=== PATIENT | male | born 1975 ===

== ENCOUNTER 2020-04-29 22:37 | Emergency (ER) | payer SELFPAY ==
[~2020-04-29] VITALS: Ht 175 cm; Wt 70.3 kg
[2020-04-29] MEDS ORDERED: LIDOCAINE 1% INJ 20 ML 20 ML VIAL INJ ONE (23:00)
[2020-04-29] MEDS ORDERED: TETANUS,DIPTH,PERTUSS P/F (BOOSTRIX) 0.5 ML VIAL IM ONE (23:00)
[2020-04-29] MEDS ORDERED: fentaNYL INJECTION 100 MCG/2 ML AMP IVP ONE (23:00)
[2020-04-29] MEDS ORDERED: morphine INJ 10 MG/ML 1ML (SYR OR VIAL) IVP STA (23:29)
[2020-04-29] MEDS ORDERED: ONDANSETRON 4 MG/2 ML (SDV) Z0FRAN IVP ONE (23:30)
--- NOTE | 2020-04-30 01:06 | ED Lower Extremity ---
General Chief Complaint: Laceration Stated Complaint: RIGHT LEG LAC Nursing Triage Note: to e.d. by private vehicle after cutting thigh with skil saw approx. 2230, 11x6cm laceration to right anterior thigh. Nursing Sepsis Screen: No Definite Risk Source: patient Exam Limitations: no limitations History of Present Illness Date Seen by Provider: Apr 29, 2020 Time Seen by Provider: 23:00 Initial Comments Patient is a 44-year-old male who presents to the emergency department tonight with a chief complaint of a traumatic injury to the right anterior thigh. Patient states that he was using a skill saw when he inadvertently pulled the skill saw down onto his right thigh. Patient had immediate pain. He denies any numbness, tingling weakness to the extremity. He is complaining of significant pain right now. There is not much bleeding noted. He denies any injuries anywhere else. Unknown last tetanus shot. All other review of systems reviewed and negative except as stated above. Onset: just prior to arrival Severity: severe Pain/Injury Location: right thigh Method of Injury: incised Allergies and Home Medications Allergies Coded Allergies: No Known Drug Allergies (Unverified , 04/29/20) Home Medications Cephalexin 500 Mg Tablet, 500 MG PO TID Prescribed by: JAYCE SEWELL on 04/30/20 0110 Hydrocodone/Acetaminophen 1 Each Tablet, 1 TAB PO Q6H PRN for PAIN-MODERATE (5- 7) Prescribed by: JAYCE SEWELL on 04/30/20 0110 Patient Home Medication List Home Medication List Reviewed: Yes Review of Systems Constitutional: see HPI EENTM: no symptoms reported Respiratory: no symptoms reported Cardiovascular: no symptoms reported Gastrointestinal: nausea Musculoskeletal: muscle pain Skin: other (Large laceration) All Other Systems Reviewed Negative Unless Noted: Yes Past Adaygch-Iwqmas-Bhgazo Hx Patient Social History Alcohol Use: Denies Use Smoking Status: Never a Smoker 2nd Hand Smoke Exposure: No Recent Infectious Disease Expo: No Recent Hopitalizations: No Immunizations Up To Date Tetanus Booster (TDap): Unknown Seasonal Allergies Seasonal Allergies: No Past Medical History Surgeries: No Respiratory: No Cardiac: No Neurological: No Genitourinary: No Gastrointestinal: No Musculoskeletal: No Endocrine: No HEENT: No Cancer: No Psychosocial: No Integumentary: No Blood Disorders: No Physical Exam Vital Signs Vital Signs - First Documented 04/29/20 22:40 Temp 36.8 Pulse 67 Resp 18 B/P (MAP) 137/90 (106) Pulse Ox 100 O2 Delivery Room Air Capillary Refill : Less Than 3 Seconds Height, Weight, BMI Height: '" Weight: lbs. oz. kg; 22.00 BMI Method: General Appearance: WD/WN, moderate distress HEENT: PERRL/EOMI Cardiovascular: regular rate, rhythm Respiratory: no respiratory distress, no accessory muscle use Gastrointestinal: non tender, soft Hips: bilateral hip non-tender, bilateral hip normal inspection, bilateral hip normal range of motion, bilateral hip no evidence of injury; right hip soft tissue tenderness Legs: bilateral leg non-tender, bilateral leg normal inspection, bilateral leg normal range of motion, bilateral leg no evidence of injury Knees: bilateral knee non-tender, bilateral knee normal inspection, bilateral knee normal range of motion, bilateral knee no evidence of injury Ankles: bilateral ankle non-tender, bilateral ankle normal inspection, bilateral ankle normal range of motion, bilateral ankle no evidence of injury Neurologic/Psychiatric: alert, normal mood/affect, oriented x 3 Skin: normal color, other (Large 11 cm in length vertical laceration down the anterior right thigh approximately 6 cm in width. No significant active ble eding no obvious contamination.) Procedures/Interventions Wound Location: Lower Extremities (Right thigh) Wound Length (cm): 11 Wound's Depth, Shape: superficial, into muscle, linear Wound Explored: clean Irrigated w/ Saline (ccs): 500 Betadine Prep?: No Anesthesia: 1% Lidocaine Volume Anesthetic (ccs): 15 Suture: Ethlion, Vicryl (3-0) Suture Size: 2-0 Number of Sutures: 12 Layer Closure?: 2 Number Deep Layer Sutures: 3 Sterile Dressing Applied?: Yes Progress/Results/Core Measures Results/Orders My Orders Orders - JAYCE SEWELL MD Fentanyl Injection (Sublimaze Injection (04/29/20 23:00) Dipht,Pertuss(Acell),Tet Adult (Boostrix (04/29/20 23:00) Lidocaine 1% Inj 20 Ml (Xylocaine 1% Inj (04/29/20 23:00) Morphine Injection (Morphine Injection (04/29/20 23:29) Ondansetron Injection (Zofran Injectio (04/29/20 23:30) Cephalexin Capsule (Keflex Capsule) (04/30/20 01:15) Rx-Hydrocodone/Apap 5-325 Mg (Rx-Vicodin (04/30/20 01:15) Medications Given in ED Current Medications Medications Dose Ordered Sig/Alyssa Route Start Time Stop Time Status Last Admin Dose Admin Acetaminophen/ Hydrocodone Bitart 1 ea Q4H PRN PO 04/30/20 01:15 04/30/20 01:26 DC 04/30/20 01:26 1 EA Cephalexin HCl 500 mg ONCE ONCE PO 04/30/20 01:15 04/30/20 01:16 DC 04/30/20 01:26 500 MG Diphtheria/ Tetanus/Acell Pertussis 0.5 ml ONCE ONCE IM 04/29/20 23:00 04/29/20 23:01 DC 04/29/20 22:59 0.5 ML Fentanyl Citrate 50 mcg ONCE ONCE IVP 04/29/20 23:00 04/29/20 23:01 DC 04/29/20 22:58 50 MCG Lidocaine HCl 20 ml ONCE ONCE INJ 04/29/20 23:00 04/29/20 23:01 DC 04/29/20 22:58 20 ML Ondansetron HCl 8 mg ONCE ONCE IVP 04/29/20 23:30 04/29/20 23:31 DC 04/29/20 23:33 8 MG Vital Signs/I&O 04/29/20 04/30/20 22:40 01:25 Temp 36.8 36.5 Pulse 67 84 Resp 18 16 B/P (MAP) 137/90 (106) 137/96 (106) Pulse Ox 100 100 O2 Delivery Room Air Room Air Blood Pressure Mean: 106 Progress Progress Note : Time: 01:04 Progress Note Of 1% lidocaine was used for local anesthesia at the wound borders and around the muscle fascia. Wound was copiously irrigated. Cleaned. 3-0 Vicryl horizontal mattress sutures x3 in the muscle fascia, 2-0 Ethilon used to close the skin with 3 horizontal mattress sutures and 6 superficial interrupted sutures. Patient tolerated the procedure well. He was given fentanyl morphine and Zofran for pain and nausea. Clean dry gauze dressing placed over the wound. Patient will be sent home on antibiotics. Follow-up with wound care. Will need sutures removed in 2 weeks. Departure Impression Primary Impression: Laceration of thigh, right, complicated Qualified Codes: S71.111A - Laceration without foreign body, right thigh, initial encounter Disposition: HOME, SELF-CARE Condition: Stable Departure-Patient Inst. Decision time for Depature: 01:06 Referrals: ITA FAUSTIN MD NO,LOCAL PHYSICIAN (PCP) Primary Care Physician Patient Instructions: Laceration Repair With Stitches ED Add. Discharge Instructions: Keep the wound clean dry and covered for the next several days. You may wash it with normal soap and water and shower as normal. Do not submerge the wound in bath water for at least 48 hours. I have given you a prescription for antibiotics. Please take these for the next 7 days. If the wound becomes red, swollen, drains any pus or any other emergent concerns develop please come back to the emergency room for reevaluation. I have given you referral information for the emergency management specialist, Dr. Faustin. You can call the office on Saturday for a follow-up appointment at his wound care clinic. The stitches will need to come out in 14 days. Scripts Hydrocodone/Acetaminophen (Hydrocodone-Acetamin 5-325 mg) 1 Each Tablet 1 TAB PO Q6H PRN for PAIN-MODERATE (5-7), #15 TAB Prov: JAYCE SEWELL MD 04/30/20 Cephalexin (Cephalexin) 500 Mg Tablet 500 MG PO TID, #21 TAB Prov: JAYCE SEWELL MD 04/30/20 JAYCE SEWELL MD Apr 30, 2020 01:06
[2020-04-30] MEDS ORDERED: ACHD5005 PO (01:10)
[2020-04-30] MEDS ORDERED: CEPH500T PO (01:10)
[2020-04-30] MEDS ORDERED: RX-HYDROCODONE/APAP 5/325 MG #4 TAB PK PO PRN (01:15)
[2020-04-30] MEDS ORDERED: CEPHALEXIN 250 MG (KEFLEX) CAP PO ONE (01:15)
[2020-04-30 01:25] VITALS: BP 137/96
== END 2020-04-30 01:26 | disposition home or self-care (01) ==
LOC: ER 22:40
DX: S71.111A Laceration without foreign body, right thigh, initial encounter (principal); Z23 Encounter for immunization; W31.2XXA Contact with powered woodworking and forming machines, initial encounter
CPT/HCPCS: 12034; 90715